=== PATIENT | female | born 1950 | race Caucasian/White ===

== ENCOUNTER 2019-11-21 11:31 | Inpatient (IN) | payer MEDICARE ==
[~2019-11-21] VITALS: Ht 160 cm; Wt 86.9 kg
--- NOTE | 2019-11-21 11:41 | NUR ---
Pt taken back to room via wheelchair. NAD, even and unlabored respirations.
[2019-11-21] MEDS ORDERED: AMLO10TA8 PO (12:11)
[2019-11-21] MEDS ORDERED: VALSARTAN/HCTZ PO (12:11)
[2019-11-21] MEDS ORDERED: DULO60CA7 PO (12:11)
[2019-11-21] MEDS ORDERED: TIZA4CAP PO (12:11)
[2019-11-21] MEDS ORDERED: HYDR-36 PO (12:11)
[2019-11-21] MEDS ORDERED: BENTYL (12:11)
[2019-11-21] MEDS ORDERED: SUMA100T4 PO (12:11)
[2019-11-21] MEDS ORDERED: DICL50TA2 PO (12:11)
[2019-11-21] MEDS ORDERED: GABA300C10 PO (12:11)
[2019-11-21] MEDS ORDERED: KETOROLAC 30 MG/1 ML ONE (12:27)
[2019-11-21] MEDS ORDERED: ONDANSETRON 2MG/ML, 2ML IVPush ONE (12:30)
[2019-11-21] MEDS ORDERED: SODIUM CHLORIDE FLUSH 10ML SYR IVF ONE (12:30)
[2019-11-21] MEDS ORDERED: MORPHINE SULFATE 4 MG/ML, 1ML IVPush PRN (12:30)
[2019-11-21] MEDS ORDERED: KETOROLAC 30 MG/1 ML IVPush ONE (12:30)
--- NOTE | 2019-11-21 12:31 | NUR ---
PT TO ED FOR NUMBESS AND WEAKNESS TO BLE, WORSE ON LEFT. PT STATES SHE HAS HAD BACK PROBLEMS FOR YEARS AND ONE DOCTOR RECOMMENDS MULTIPLE FUSIONS AND OTHER SURGERIES. SHE IS CURRENTLY WAITING FOR A SECOND OPINION. PT DENIES URINARY INCONTINENCE. PT STATES ONE OF HER DOCTORS SAID SHE SHOULD COME TO THIS ER FOR AN EPIDURAL AND ADMISSION BECAUSE SHE ISN'T SAFE TO BE AT HOME ALONE. PT CONNECTED TO MONITORS. VSS. EDMD SAHM TO BS FOR ASSESSMENT. ORDERS RECEIVED. IV ESTABLISHED AND LABS COLLECTED AND SENT. PT HELPED TO RR VIA WHEELCHAIR TO PROVIDE UA SAMPLE. UA COLLECTED AND SENT. PT MEDICATED PER MAR FOR PAIN. NO NEEDS EXPRESSED AT THIS TIME. CALL LIGHT WITHIN REACH. AWAITING RESULTS.
[2019-11-21 12:37] LABS: MICROSCOPIC INDICATED
[2019-11-21 12:38] LABS: CULTURE INDICATED? YES
[2019-11-21 12:46] LABS: BASOPHILS # (AUTO) 0.02 x10^3/uL (0-0.1); BASOPHILS % (AUTO) 0 % (0-1); EOSINOPHILS % (AUTO) 0 % (1-7); LYMPHOCYTES # (AUTO) 0.57 x10^3/uL (1-3.4); LYMPHOCYTES % (AUTO) 5 % (22-44); MD NO; MEAN CORPUSCULAR HEMOGLOBIN 28.8 pg (27.0-34.8); MEAN CORPUSCULAR HGB CONC 32.4 g/dL (32.4-35.8); MEAN CORPUSCULAR VOLUME 88.9 fL (80-100); MEAN PLATELET VOLUME 6.6 fL (7.4-10.4); MONOCYTES # (AUTO) 0.08 x10^3/uL (0.2-0.8); MONOCYTES % (AUTO) 1 % (2-9); NEUTROPHILS # (AUTO) 9.81 x10^3/uL (1.8-6.8); NEUTROPHILS % (AUTO) 94 % (42-75); PLATELET COUNT 503 x10^3/uL (130-400); RED BLOOD COUNT 4.51 x10^6/uL (3.82-5.3); RED CELL DISTRIBUTION WIDTH 13.8 % (9.6-15.2)
[2019-11-21 12:58] LABS: ALBUMIN 3.8 g/dL (3.4-5.0); ANION GAP 12 mmol/L (5-15); CALCIUM 10.2 mg/dL (8.5-10.1); CHLORIDE 98 mmol/L (98-107)
[2019-11-21 13:02] LABS: ALANINE AMINOTRANSFERASE 24 U/L (12-78); ALKALINE PHOSPHATASE 129 U/L (45-117); BILIRUBIN,TOTAL 0.9 mg/dL (0.2-1.0); TOTAL PROTEIN 8.1 g/dL (6.4-8.2)
[2019-11-21] MEDS ORDERED: SODIUM CHLORIDE FLUSH 10ML SYR IVF PRN (13:30)
--- NOTE | 2019-11-21 13:45 | NUR ---
PT GIVEN SOCKS PER REQUEST. PT RESTING, NADN.
[2019-11-21] MEDS ORDERED: HEPARIN 5,000 UNITS/ML, 1ML ONE (13:54)
[2019-11-21] MEDS ORDERED: MORPHINE SULFATE 4 MG/ML, 1ML ONE (13:54)
[2019-11-21] MEDS ORDERED: NS + 20MEQ KCL 1,000 ML IV ONE (13:55)
[2019-11-21] MEDS: NS + 20MEQ KCL 1,000 ML IV SCH (14:00)
[2019-11-21] MEDS ORDERED: POLYETHYLENE GLYCOL 17 GM PACKET PO PRN (14:00)
[2019-11-21] MEDS ORDERED: BISACODYL 10 MG SUPP PR PRN (14:00)
[2019-11-21] MEDS ORDERED: hydrALAzine 20 MG/ML, 1ML IVPush PRN (14:00)
[2019-11-21] MEDS ORDERED: ONDANSETRON 2MG/ML, 2ML IVPush PRN (14:00)
[2019-11-21] MEDS: HEPARIN 5,000 UNITS/ML, 1ML SQ SCH ×2 (14:02→21:54)
--- NOTE | 2019-11-21 14:13 | NUR ---
Pt medicated per emar.
[2019-11-21 14:45] VITALS: BP 130/82
[2019-11-21 15:10] LABS: FREE T4 (FREE THYROXINE) 1.29 ng/dL (0.76-1.46)
[2019-11-21 15:35] VITALS: BP 129/80
[2019-11-21] MEDS: HYDROcodone/APAP 10/325 MG TABLET PO SCH ×3 (16:42→20:51)
[2019-11-21 18:11] VITALS: BP 148/53
[2019-11-21] MEDS: AMLODIPINE 5 MG TABLET PO SCH (21:00)
[2019-11-21] MEDS ORDERED: DICLOFENAC SODIUM 75 MG TABLET.DR PO PRN (21:00)
[2019-11-21] MEDS: morphine SULFATE 10 MG/ML, 1ML IVPush PRN (21:20)
[2019-11-21 21:47] VITALS: BP 94/53
[2019-11-21] MEDS: GABAPENTIN 300 MG CAPSULE PO SCH (21:53)
[2019-11-21] MEDS: DULOXETINE 30 MG CAPSULE.DR PO SCH (21:54)
[2019-11-22 00:03] VITALS: BP 104/58
[2019-11-22 00:43] VITALS: BP 100/69
[2019-11-22] MEDS: NS + 20MEQ KCL 1,000 ML IV SCH ×2 (02:17→13:13)
[2019-11-22 05:05] LABS: BASOPHILS # (AUTO) 0.09 x10^3/uL (0-0.1); BASOPHILS % (AUTO) 1 % (0-1); EOSINOPHILS # (AUTO) 0.29 x10^3/uL (0-0.4); EOSINOPHILS % (AUTO) 4 % (1-7); LYMPHOCYTES # (AUTO) 2.51 x10^3/uL (1-3.4); LYMPHOCYTES % (AUTO) 32 % (22-44); MD NO; MEAN CORPUSCULAR HGB CONC 32.8 g/dL (32.4-35.8); MEAN CORPUSCULAR VOLUME 88.4 fL (80-100); MEAN PLATELET VOLUME 6.8 fL (7.4-10.4); MONOCYTES # (AUTO) 0.49 x10^3/uL (0.2-0.8); MONOCYTES % (AUTO) 6 % (2-9); NEUTROPHILS # (AUTO) 4.56 x10^3/uL (1.8-6.8); NEUTROPHILS % (AUTO) 57 % (42-75); PLATELET COUNT 383 x10^3/uL (130-400); RED BLOOD COUNT 3.63 x10^6/uL (3.82-5.3); RED CELL DISTRIBUTION WIDTH 13.8 % (9.6-15.2)
[2019-11-22 05:19] LABS: ALANINE AMINOTRANSFERASE 17 U/L (12-78); ALBUMIN 2.7 g/dL (3.4-5.0); ANION GAP 8 mmol/L (5-15); CALCIUM 8.8 mg/dL (8.5-10.1); CHLORIDE 106 mmol/L (98-107)
[2019-11-22 05:22] LABS: ALKALINE PHOSPHATASE 91 U/L (45-117); BILIRUBIN,TOTAL 0.4 mg/dL (0.2-1.0); CHOL/HDL RATIO 4.7; CHOLESTEROL, TOTAL 175 mg/dL (140-239); CREATININE 0.85 mg/dL (0.55-1.02); HDL CHOL % 21 % (28-40); HDL CHOLESTEROL (DIRECT) 37 mg/dL (40-60); LDL CHOLESTEROL,CALCULATED 74 mg/dL (54-169); TOTAL PROTEIN 5.8 g/dL (6.4-8.2); TRIGLYCERIDES 321 mg/dL (50-200); VLDL CHOLESTEROL 64 mg/dL (0-25)
[2019-11-22] MEDS: HEPARIN 5,000 UNITS/ML, 1ML SQ SCH ×2 (05:51→17:20)
[2019-11-22] MEDS: HYDROcodone/APAP 10/325 MG TABLET PO SCH ×3 (05:57→21:42)
[2019-11-22 07:51] VITALS: BP 154/74
[2019-11-22] MEDS ORDERED: TIZANIDINE 4MG TABLET PO PRN (09:00)
[2019-11-22] MEDS: SUMATRIPTAN 100 MG TABLET PO SCH (09:00)
[2019-11-22] MEDS: GABAPENTIN 300 MG CAPSULE PO SCH ×2 (09:27→21:41)
[2019-11-22] MEDS: morphine SULFATE 10 MG/ML, 1ML IVPush PRN ×3 (09:44→23:10)
[2019-11-22] MEDS: KETOROLAC 30 MG/1 ML IM PRN ×2 (13:25→20:26)
[2019-11-22 13:41] VITALS: BP 131/70
[2019-11-22 18:37] VITALS: BP 148/70
[2019-11-22] MEDS: DULOXETINE 30 MG CAPSULE.DR PO SCH (21:41)
[2019-11-22] MEDS: AMLODIPINE 5 MG TABLET PO SCH (21:42)
[2019-11-23 00:02] VITALS: BP 138/76
[2019-11-23] MEDS: HEPARIN 5,000 UNITS/ML, 1ML SQ SCH ×3 (01:21→17:54)
[2019-11-23] MEDS: ZOLPIDEM 5MG TABLET PO PRN ×2 (01:30→23:15)
[2019-11-23] MEDS: NS + 20MEQ KCL 1,000 ML IV SCH ×3 (03:24→22:35)
[2019-11-23] MEDS: morphine SULFATE 10 MG/ML, 1ML IVPush PRN ×4 (06:13→20:15)
[2019-11-23 06:47] VITALS: BP 155/81
[2019-11-23] MEDS: HYDROcodone/APAP 10/325 MG TABLET PO SCH ×3 (09:00→21:34)
[2019-11-23] MEDS: GABAPENTIN 300 MG CAPSULE PO SCH ×3 (09:00→21:00)
[2019-11-23] MEDS: SUMATRIPTAN 100 MG TABLET PO SCH (09:00)
[2019-11-23] MEDS: KETOROLAC 30 MG/1 ML IM PRN (09:04)
[2019-11-23 14:08] VITALS: BP 135/73
[2019-11-23 19:23] VITALS: BP 157/71
[2019-11-23] MEDS: AMLODIPINE 5 MG TABLET PO SCH (21:34)
[2019-11-23] MEDS: DULOXETINE 30 MG CAPSULE.DR PO SCH (21:35)
[2019-11-23] MEDS ORDERED: SUMATRIPTAN 100 MG TABLET PO ONE (23:30)
[2019-11-24] MEDS: morphine SULFATE 10 MG/ML, 1ML IVPush PRN ×5 (00:41→20:09)
[2019-11-24 00:42] VITALS: BP 149/82
[2019-11-24] MEDS: HEPARIN 5,000 UNITS/ML, 1ML SQ SCH ×3 (01:30→17:40)
[2019-11-24 05:59] LABS: CHLORIDE 109 mmol/L (98-107)
[2019-11-24 06:05] LABS: ALBUMIN 2.8 g/dL (3.4-5.0); ANION GAP 5 mmol/L (5-15); CALCIUM 9.2 mg/dL (8.5-10.1); CREATININE 0.61 mg/dL (0.55-1.02)
[2019-11-24 06:08] LABS: BASOPHILS # (AUTO) 0.03 x10^3/uL (0-0.1); BASOPHILS % (AUTO) 1 % (0-1); EOSINOPHILS # (AUTO) 0.42 x10^3/uL (0-0.4); EOSINOPHILS % (AUTO) 7 % (1-7); LYMPHOCYTES # (AUTO) 2.03 x10^3/uL (1-3.4); LYMPHOCYTES % (AUTO) 34 % (22-44); MD NO; MEAN CORPUSCULAR HEMOGLOBIN 29.1 pg (27.0-34.8); MEAN CORPUSCULAR HGB CONC 33.1 g/dL (32.4-35.8); MEAN CORPUSCULAR VOLUME 87.8 fL (80-100); MEAN PLATELET VOLUME 6.9 fL (7.4-10.4); MONOCYTES # (AUTO) 0.49 x10^3/uL (0.2-0.8); MONOCYTES % (AUTO) 8 % (2-9); NEUTROPHILS # (AUTO) 3.06 x10^3/uL (1.8-6.8); NEUTROPHILS % (AUTO) 51 % (42-75); PLATELET COUNT 344 x10^3/uL (130-400); RED BLOOD COUNT 3.78 x10^6/uL (3.82-5.3); RED CELL DISTRIBUTION WIDTH 13.7 % (9.6-15.2)
[2019-11-24 08:33] VITALS: BP 159/84
[2019-11-24] MEDS: SUMATRIPTAN 100 MG TABLET PO SCH (09:00)
[2019-11-24] MEDS ORDERED: GABAPENTIN 300 MG CAPSULE PO SCH (09:00)
[2019-11-24] MEDS: NS + 20MEQ KCL 1,000 ML IV SCH (09:21)
[2019-11-24] MEDS: GABAPENTIN 300 MG CAPSULE PO SCH ×2 (09:23→20:01)
[2019-11-24] MEDS: HYDROcodone/APAP 10/325 MG TABLET PO SCH ×3 (09:23→22:20)
[2019-11-24] MEDS: VALSARTAN 160 MG TABLET PO SCH (09:24)
[2019-11-24] MEDS: HYDROCHLOROTHIAZIDE 12.5 MG CAPSULE PO SCH (09:39)
[2019-11-24] MEDS ORDERED: PROMETHAZINE 25MG TABLET PO PRN (11:00)
[2019-11-24 15:43] VITALS: BP 156/84
[2019-11-24 19:19] VITALS: BP 166/77
[2019-11-24] MEDS: AMLODIPINE 5 MG TABLET PO SCH (20:01)
[2019-11-24] MEDS: DULOXETINE 30 MG CAPSULE.DR PO SCH (20:01)
[2019-11-24] MEDS: ZOLPIDEM 5MG TABLET PO PRN (23:12)
[2019-11-25 01:20] VITALS: BP 147/86
[2019-11-25] MEDS: HEPARIN 5,000 UNITS/ML, 1ML SQ SCH ×3 (01:30→17:38)
[2019-11-25 08:02] VITALS: BP 169/84
[2019-11-25] MEDS: VALSARTAN 160 MG TABLET PO SCH (08:21)
[2019-11-25] MEDS: morphine SULFATE 10 MG/ML, 1ML IVPush PRN ×4 (08:22→20:48)
[2019-11-25] MEDS: GABAPENTIN 300 MG CAPSULE PO SCH ×2 (08:22→20:48)
[2019-11-25] MEDS: HYDROCHLOROTHIAZIDE 12.5 MG CAPSULE PO SCH (08:22)
[2019-11-25] MEDS: SUMATRIPTAN 100 MG TABLET PO SCH (09:00)
[2019-11-25] MEDS: HYDROcodone/APAP 10/325 MG TABLET PO SCH ×3 (09:39→22:02)
[2019-11-25 16:03] VITALS: BP 131/72
[2019-11-25 19:15] VITALS: BP 147/62
[2019-11-25] MEDS: DULOXETINE 30 MG CAPSULE.DR PO SCH (20:49)
[2019-11-25] MEDS: AMLODIPINE 5 MG TABLET PO SCH (20:49)
[2019-11-25] MEDS: ZOLPIDEM 5MG TABLET PO PRN (23:18)
[2019-11-26] MEDS: morphine SULFATE 10 MG/ML, 1ML IVPush PRN (00:41)
[2019-11-26] MEDS: HEPARIN 5,000 UNITS/ML, 1ML SQ SCH ×3 (01:30→17:38)
[2019-11-26 01:56] VITALS: BP 138/75
[2019-11-26 08:21] VITALS: BP 173/83
[2019-11-26] MEDS: VALSARTAN 160 MG TABLET PO SCH (10:10)
[2019-11-26] MEDS: SUMATRIPTAN 100 MG TABLET PO SCH (10:10)
[2019-11-26] MEDS: HYDROcodone/APAP 10/325 MG TABLET PO SCH (10:11)
[2019-11-26] MEDS: GABAPENTIN 300 MG CAPSULE PO SCH (10:11)
[2019-11-26] MEDS: HYDROCHLOROTHIAZIDE 12.5 MG CAPSULE PO SCH (10:11)
[2019-11-26] MEDS ORDERED: SUMATRIPTAN 100 MG TABLET PO PRN (11:00)
[2019-11-26] MEDS ORDERED: PROMETHAZINE 25MG TABLET PO PRN (11:30)
[2019-11-26] MEDS: ONDANSETRON ODT 4 MG PO ONE ×2 (11:30→11:51)
[2019-11-26] MEDS: LIDODERM 5% PATCH TD SCH (11:55)
[2019-11-26] MEDS: HYDROcodone/APAP 10/325 MG TABLET PO PRN ×2 (15:20→21:09)
[2019-11-26 15:23] VITALS: BP 155/78
[2019-11-26] MEDS ORDERED: METHOCARBAMOL 750 MG TABLET PO PRN (15:30)
[2019-11-26] MEDS ORDERED: GABA300C10 PO ×2 (15:36)
[2019-11-26] MEDS ORDERED: LIDO700A20 TD (15:36)
[2019-11-26] MEDS: KETOROLAC 30 MG/1 ML IM PRN (17:38)
[2019-11-26 19:49] VITALS: BP 92/54
[2019-11-26] MEDS ORDERED: GABAPENTIN 100 MG CAPSULE ONE (20:52)
[2019-11-26] MEDS ORDERED: GABAPENTIN 400 MG CAPSULE ONE (20:53)
[2019-11-26] MEDS ORDERED: GABAPENTIN 300 MG CAPSULE PO SCH (21:00)
[2019-11-26 21:07] VITALS: BP 112/72
[2019-11-26] MEDS: AMLODIPINE 5 MG TABLET PO SCH (21:09)
[2019-11-26] MEDS: DULOXETINE 30 MG CAPSULE.DR PO SCH (21:10)
[2019-11-26] MEDS: ZOLPIDEM 5MG TABLET PO PRN (22:33)
[2019-11-27 00:07] VITALS: BP 105/67
[2019-11-27] MEDS: KETOROLAC 30 MG/1 ML IM PRN (00:18)
[2019-11-27] MEDS: HEPARIN 5,000 UNITS/ML, 1ML SQ SCH ×3 (01:28→08:10)
[2019-11-27 07:51] VITALS: BP 163/76
[2019-11-27] MEDS: VALSARTAN 160 MG TABLET PO SCH (08:02)
[2019-11-27] MEDS: HYDROCHLOROTHIAZIDE 12.5 MG CAPSULE PO SCH (08:02)
[2019-11-27] MEDS: HYDROcodone/APAP 10/325 MG TABLET PO PRN (08:03)
[2019-11-27] MEDS ORDERED: GABAPENTIN 300 MG CAPSULE PO SCH (09:00)
[2019-11-27] MEDS ORDERED: PROM25TA10 PO (10:01)
[2019-11-27] MEDS ORDERED: ZOLP-413 PO (10:01)
[2019-11-27] MEDS: LIDODERM 5% PATCH TD SCH (11:30)
[2019-11-27 11:44] VITALS: BP 118/71
== END 2019-11-27 12:11 | DRG 552 ==
LOC: ED 12:28 → INTOOBSV 13:17 → EDIP 13:17 → OBSVTOIN 13:17 → 3N 14:40
PROVIDERS: ADMIT Hospitalist; ATTEND Internal Medicine Infectious Disease
DX: M51.16 Intervertebral disc disorders with radiculopathy, lumbar region (principal); N17.9 Acute kidney failure, unspecified; M48.061 Spinal stenosis, lumbar region without neurogenic claudication; M79.7 Fibromyalgia; E78.5 Hyperlipidemia, unspecified; G89.29 Other chronic pain; I10 Essential (primary) hypertension; Z88.6 Allergy status to analgesic agent; Z88.7 Allergy status to serum and vaccine; Z88.8 Allergy status to other drugs, medicaments and biological substances; Z80.1 Family history of malignant neoplasm of trachea, bronchus and lung; Z80.3 Family history of malignant neoplasm of breast; Z91.81 History of falling
CPT/HCPCS: 36415; 72148; 80053; 80061; 80069; 81001; 83735; 84439; 84443; 85025; 87086; 96374; G0378; J1644; J1885; J3480; Q0162; Q0169; J2270